=== PATIENT | female | born 1980 | race Caucasian/White ===

== ENCOUNTER 2017-06-20 10:57 | Emergency (ER) | payer BC ==
[~2017-06-20] VITALS: Ht 160 cm; Wt 72.6 kg
[2017-06-20] MEDS ORDERED: NS(*) 0.9% 1000 ML BAG 1,000 ML IV ONE (11:02)
[2017-06-20] MEDS ORDERED: ONDANSETRON 4 MG/2 ML VIAL IVP ONE (11:05)
[2017-06-20] MEDS ORDERED: HYDROmorphone(ER ONLY) 1 MG/ML IVP ONE (11:05)
--- NOTE | 2017-06-20 11:06 | ER Report ---
History and Physical Time Seen By MD: 11:04 Hx. 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 Patient states that this actually started about a week to week and a half prior to presentation was had some episodic right upper quadrant pain without any obvious soliciting alleviating factors. Patient denies any nausea vomiting diarrhea shortness of breath patient is crying at. Patient denies any history of surgical procedure she still is her gallbladder and her appendix. Patient has no additional complaints this time. Patient describes pain as sharp stabbing localized again primarily the right upper quadrant reproducible with motion and palpation patient has no additional complaints noted REVIEW OF SYSTEMS: Respiratory: No cough, no dyspnea. Cardiovascular: No chest pain, no palpitations. Gastrointestinal: Right upper quadrant abdominal and right lateral chest wall discomfort Musculoskeletal: No back pain. Remainder of the 14 system rev: Yes Allergies: Coded Allergies: No Known Drug Allergies (Unverified , 06/20/17) Reviewed Nurses Notes: Yes Old Medical Records Reviewed: Yes Constitutional Vital Sign - Last 24 Hours 06/20/17 06/20/17 06/20/17 06/20/17 10:59 10:59 11:05 11:27 Temp 97.8 Pulse 118 112 Resp 20 19 B/P (MAP) 131/96 157/123 (134) 131/96 (108) Pulse Ox 100 O2 Delivery Room Air 06/20/17 06/20/17 11:42 11:57 Pulse 102 96 Resp 35 20 Pulse Ox 93 93 Physical Exam General Appearance: The patient is alert, has no immediate need for airway protection and no current signs of toxicity. Patient appears uncomfortable crying Eyes: Pupils equal and round no injection. Respiratory: Chest is non tender, lungs are clear to auscultation. Cardiac: regular rate and rhythm [ ] Gastrointestinal: Abdominal examination pain to palpation of the right upper quadrant positive Mirza sign mild guarding without rebound normal bowel sounds otherwise unremarkable exam Musculoskeletal: Palpation of the right inferior lateral chest wall does demonstrate some pain and tenderness to deep palpation Neck is supple and non tender. Extremities have full range of motion and are non tender. Skin: No rashes or lesions. [ ] DIFFERENTIAL DIAGNOSIS: After history and physical exam differential diagnosis was considered for cholecystitis acute cholangitis ascending cholangitis pulmonary emboli and pneumonia pneumothorax Medical Decision Making Data Points Result Diagram: 06/20/17 1132 06/20/17 1132 Laboratory Hematology Test 06/20/17 11:32 06/20/17 14:04 Red Blood Count 4.61 M/uL (4.17-5.56) Mean Corpuscular Volume 88.4 fL (80.0-96.0) Mean Corpuscular Hemoglobin 30.7 pg (26.0-33.0) Mean Corpuscular Hemoglobin Concent 34.7 g/dL (32.0-36.0) Red Cell Distribution Width 13.4 % (11.5-14.5) Mean Platelet Volume 8.7 fL (7.2-11.1) Neutrophils (%) (Auto) 63.3 % (39.4-72.5) Lymphocytes (%) (Auto) 28.9 % (17.6-49.6) Monocytes (%) (Auto) 6.5 % (4.1-12.4) Eosinophils (%) (Auto) 0.7 % (0.4-6.7) Basophils (%) (Auto) 0.6 % (0.3-1.4) Nucleated RBC Relative Count (auto) 0.0 /100WBC Neutrophils # (Auto) 4.1 K/uL (2.0-7.4) Lymphocytes # (Auto) 1.9 K/uL (1.3-3.6) Monocytes # (Auto) 0.4 K/uL (0.3-1.0) Eosinophils # (Auto) 0.0 K/uL (0.0-0.5) Basophils # (Auto) 0.0 K/uL (0.0-0.1) Nucleated RBC Absolute Count (auto) 0.00 K/uL Prothrombin Time 12.7 seconds (12.0-14.4) Prothromb Time International Ratio 0.95 Activated Partial Thromboplast Time 28 seconds (23-35) D-Dimer Quantitative (PE/DVT) 0.27 ug/ml (0-0.50) Sodium Level 139 mmol/L (137-145) Potassium Level 4.2 mmol/L (3.5-5.0) Chloride Level 107 mmol/L (98-107) Carbon Dioxide Level 24 mmol/L (22-31) Blood Urea Nitrogen 13 mg/dl (7-18) Creatinine 0.80 mg/dl (0.52-1.04) Glomerular Filtration Rate Calc > 60.0 Random Glucose 96 mg/dl (75-110) Calcium Level 9.0 mg/dl (8.4-10.2) Total Bilirubin 0.3 mg/dl (0.2-1.3) Aspartate Amino Transf (AST/SGOT) 24 U/L (0-35) Alanine Aminotransferase (ALT/SGPT) 31 U/L (0-56) Alkaline Phosphatase 64 U/L (0-126) Troponin I < 0.012 ng/ml Total Protein 7.0 gm/dl (6.3-8.2) Albumin 3.9 g/dl (3.5-5.0) Lipase 77 U/L (23-300) Serum Alcohol < 10 mg/dl Chemistry Test 06/20/17 11:32 06/20/17 14:04 White Blood Count 6.4 k/uL (4.5-11.0) Red Blood Count 4.61 M/uL (4.17-5.56) Hemoglobin 14.1 g/dL (12.0-16.0) Hematocrit 40.7 % (34.0-47.0) Mean Corpuscular Volume 88.4 fL (80.0-96.0) Mean Corpuscular Hemoglobin 30.7 pg (26.0-33.0) Mean Corpuscular Hemoglobin Concent 34.7 g/dL (32.0-36.0) Red Cell Distribution Width 13.4 % (11.5-14.5) Platelet Count 168 K/uL (150-450) Mean Platelet Volume 8.7 fL (7.2-11.1) Neutrophils (%) (Auto) 63.3 % (39.4-72.5) Lymphocytes (%) (Auto) 28.9 % (17.6-49.6) Monocytes (%) (Auto) 6.5 % (4.1-12.4) Eosinophils (%) (Auto) 0.7 % (0.4-6.7) Basophils (%) (Auto) 0.6 % (0.3-1.4) Nucleated RBC Relative Count (auto) 0.0 /100WBC Neutrophils # (Auto) 4.1 K/uL (2.0-7.4) Lymphocytes # (Auto) 1.9 K/uL (1.3-3.6) Monocytes # (Auto) 0.4 K/uL (0.3-1.0) Eosinophils # (Auto) 0.0 K/uL (0.0-0.5) Basophils # (Auto) 0.0 K/uL (0.0-0.1) Nucleated RBC Absolute Count (auto) 0.00 K/uL Prothrombin Time 12.7 seconds (12.0-14.4) Prothromb Time International Ratio 0.95 Activated Partial Thromboplast Time 28 seconds (23-35) D-Dimer Quantitative (PE/DVT) 0.27 ug/ml (0-0.50) Glomerular Filtration Rate Calc > 60.0 Calcium Level 9.0 mg/dl (8.4-10.2) Total Bilirubin 0.3 mg/dl (0.2-1.3) Aspartate Amino Transf (AST/SGOT) 24 U/L (0-35) Alanine Aminotransferase (ALT/SGPT) 31 U/L (0-56) Alkaline Phosphatase 64 U/L (0-126) Troponin I < 0.012 ng/ml Total Protein 7.0 gm/dl (6.3-8.2) Albumin 3.9 g/dl (3.5-5.0) Lipase 77 U/L (23-300) Serum Alcohol < 10 mg/dl Coagulation Test 06/20/17 11:32 Prothrombin Time 12.7 seconds Prothromb Time International Ratio 0.95 Activated Partial Thromboplast Time 28 seconds D-Dimer Quantitative (PE/DVT) 0.27 ug/ml Toxicology Test 06/20/17 11:32 Serum Alcohol < 10 mg/dl Urinalysis Test 06/20/17 14:04 ED Course/Re-evaluation ED Course ED clinical course medical decision making 36-year-old female presents to emergency department today with right-sided pleuritic chest discomfort and upper right abdominal discomfort concerning for gallbladder disease ultrasound was performed negative Baseline labs cardiac markers all performed these are also negative And negative d-dimer however due to the amount of pain she has concerning for will fracture pleurisy and possible subclinical pulmonary embolus had a CT angiogram this was also negative give her some pain medication she feels better still having the pleura discomfort this could simply be an intercostal muscle strain versus early pleurisy we'll go ahead and Parona couple days with pain medication primary care follow-up Decision to Disposition Date: Jun 20, 2017 Decision to Disposition Time: 14:15 Depart Departure Latest Vital Signs Vital Signs Date Time Temp Pulse Resp B/P (MAP) Pulse Ox O2 Delivery O2 Flow Rate FiO2 06/20/17 11:57 96 20 93 06/20/17 11:05 131/96 (108) 06/20/17 10:59 97.8 Room Air Impression: Primary Impression: Chest pain Condition: Improved Disposition: HOME OR SELF-CARE Referrals: JOSIAH BRAVO MD Patient Instructions: Chest Pain (DC) MARCOS MATHUR MD Jun 20, 2017 11:06
--- NOTE | 2017-06-20 11:11 | EKG ---
FACILITY: [facility] PATIENT NAME: GEGE NAJERA : [id number] MR: [id number] V: [id number] EXAM DATE: ORDERING PHYSICIAN: MARCOS MATHUR TECHNOLOGIST: FREDI Resendiz Reason : ABDOMIAL PAIN Blood Pressure : / mmHG Vent. Rate : 109 BPM Atrial Rate : 109 BPM P-R Int : 158 ms QRS Dur : 076 ms QT Int : 336 ms P-R-T Axes : 082 055 066 degrees QTc Int : 452 ms Sinus tachycardia Nonspecific ST findings inferiorly Artifact in limb leads No previous ECGs available Confirmed by LALI RODRIGUEZ ([id number]) on 06/20/2017 12:09:14 PM Referred By: KEVAN Confirmed By:LALI RODRIGUEZ
[2017-06-20 11:40] LABS: PLATELET COUNT, AUTOMATED 168 K/uL (150-450)
[2017-06-20 11:52] LABS: INR 0.95
--- NOTE | 2017-06-20 12:11 | RADIOLOGY IMAGING REPORT ---
FACILITY: [facility] PATIENT NAME: Milagro Avery : 1980 MR: [id number] V: [id number] EXAM DATE: ORDERING PHYSICIAN: MARCOS MATHUR TECHNOLOGIST: Location: [facility] [place] Patient: Milagro Avery : 1980 Visit/Account:[id number] Date of Sevice: 06/20/2017 Exam type: CHEST PA AND LAT History: Pain, smoker Comparison: None. Findings: The lungs are free of acute effusions, infiltrates or edema. There is no evidence of a pneumothorax or pneumomediastinum. The cardiac silhouette is normal in size. The trachea is midline. IMPRESSION: 1. No acute cardiopulmonary process is seen Report Dictated By: Kate Hebert MD at 06/20/2017 12:05 PM Report E-Signed By: Kate Hebert MD at 06/20/2017 12:06 PM WSN:[id number]
[2017-06-20] MEDS ORDERED: HYDROmorphone(ER ONLY) 1 MG/ML ONE (12:37)
[2017-06-20] MEDS ORDERED: IOPAMIDOL 76% 75 ML INFUS BTL 75 ML ONE (12:44)
[2017-06-20] MEDS ORDERED: NS 0.9% 50 ML VIAL 100 ML ONE (12:44)
--- NOTE | 2017-06-20 12:46 | RADIOLOGY IMAGING REPORT ---
FACILITY: [facility] PATIENT NAME: Milagro Avery : 1980 MR: [id number] V: [id number] EXAM DATE: ORDERING PHYSICIAN: MARCOS MATHUR TECHNOLOGIST: [place] [facility] [place]: Milagro Avery : 1980 Visit/Account:[id number] Date of Sevice: 06/20/2017 INDICATION: Pain x1 week. DATE: 06/20/2017 12:37 PM. TECHNIQUE: Grayscale and color ultrasound imaging was performed of the abdomen with attention to the right upper quadrant. COMPARISON: None FINDINGS: The IVC and aorta are patent within the imaged region. The pancreas is grossly unremarkable but incompletely imaged by ultrasound. It does appear echogenic, but this may be technique related. The right kidney measures 9.1 x 3.9 x 5.2 cm. Normal cortical thickness and echogenicity. No hydronep hrosis. The left kidney was not imaged. The spleen was not imaged. The liver measures 15 cm. Echogenicity appears normal. No ascites. The gallbladder appears normal. The wall measures 2 mm. There are no shadowing stones. Negative sonog raphic Mirza's sign. IMPRESSION: No definite sonographic abnormality. The gallbladder appears normal. Report Dictated By: Marysol Nieto MD at 06/20/2017 12:37 PM Report E-Signed By: Marysol Nieto MD at 06/20/2017 12:41 PM WSN:[id number]
[2017-06-20 13:47] VITALS: BP 114/74
--- NOTE | 2017-06-20 13:59 | RADIOLOGY IMAGING REPORT ---
FACILITY: [facility] [place] PATIENT NAME: Milagro Avery : 1980 MR: [id number] V: [id number] EXAM DATE: [id number] ORDERING PHYSICIAN: MARCOS MATHUR TECHNOLOGIST: Location: [facility] Patient: Milagro Avery : 1980 Visit/Account:[id number] Date of Sevice: 06/20/2017 CT ANGIOGRAM OF THE CHEST WITH INTRAVENOUS CONTRAST, PE PROTOCOL DATE OF EXAM: 06/20/2017 12:34 COMPARISON: Chest radiograph of the same day. INDICATION: chest pain. TECHNIQUE: Contrast enhanced chest CT performed during the injection of 75 ml of Isovue-370. Three-d imensional (MIP) reconstructions were performed. FINDINGS: There is no pulmonary arterial filling defect. Thyroid: Unremarkable but incompletely imaged. Thoracic inlet: No adenopathy. Heart and great vessels: Heart size is normal. Mediastinum and wil: No mediastinal or hilar adenopathy. Lungs and pleura: No effusion, consolidation, or pneumothorax. Mild dependent atelectasis. Breast and axilla: Breast tissue is unremarkable. Bones and soft tissues: No acute osseous abnormality. Upper abdomen: Unremarkable. IMPRESSION: Negative for pulmonary arterial embolus. One of the following dose optimization techniques was utilized in the performance of this exam: Autom ated exposure control; adjustment of the mA and/or kV according to the patient's size; or use of an i terative reconstruction technique. Specific details can be referenced in the facility's radiology C T exam operational policy. Report Dictated By: Marysol Nieto MD at 06/20/2017 1:44 PM Report E-Signed By: Marysol Nieto MD at 06/20/2017 1:55 PM WSN:[id number]
== END 2017-06-20 14:37 | disposition home or self-care (01) ==
LOC: ER 11:01
DX: R07.89 Other chest pain (principal)
CPT/HCPCS: 36415; 71046; 71275; 76705; 80320; 81001; 83690; 84484; 85025; 85379; 85610; 85730; 93005; 99284; A4353; J1170; J2405; J7030; J7050; Q9967; 82040; 82247; 82310; 82374; 82435; 82565; 82947; 84075; 84132; 84155; 84295; 84450; 84460; 84520